=== PATIENT | female | born 1955 | race Asian ===

== ENCOUNTER 2016-04-09 13:09 | Observation (INO) | payer BC ==
[~2016-04-09] VITALS: Ht 160 cm; Wt 63.5 kg
[2016-04-09] MEDS ORDERED: OPTIRAY 350 100 ML VIAL HMH IV ONE (13:10)
[2016-04-09 13:49] VITALS: BP_SYST 160; RESP 16; TEMP 97.7
[2016-04-09 13:55] VITALS: Ht 160 cm; Wt 63.5 kg
[2016-04-09] MEDS ORDERED: PROMETHAZINE 25 MG/ML VIAL IV PRN (14:15)
[2016-04-09] MEDS ORDERED: DILAUDID 1 MG/ML AMP IV PRN (14:15)
[2016-04-09] MEDS: SODIUM CHLOR 0.9% W/KCL 20MEQ 1,000 ML IV SCH ×2 (14:29→20:18)
[2016-04-09 15:07] VITALS: BP_SYST 112; RESP 16; TEMP 98
[2016-04-09 19:10] VITALS: BP_SYST 96; RESP 14; TEMP 98.4
[2016-04-09 23:00] VITALS: BP_SYST 99; RESP 14; TEMP 98.1
[2016-04-10] MEDS: SODIUM CHLOR 0.9% W/KCL 20MEQ 1,000 ML IV SCH ×2 (02:26→08:37)
[2016-04-10 04:00] VITALS: BP_SYST 96; RESP 14; TEMP 98.2
[2016-04-10 07:20] VITALS: BP_SYST 114; RESP 16; TEMP 97.6
[2016-04-10 11:10] VITALS: BP_SYST 146; RESP 16; TEMP 97.6
[2016-04-10 15:14] VITALS: BP_SYST 134; RESP 16; TEMP 98.9
[2016-04-10 15:58] VITALS: BP_SYST 134; RESP 16; TEMP 98.9
== END 2016-04-10 10:17 | disposition home or self-care (01) ==
LOC: 5THW 13:09 → ENPENDDIS 13:09
PROVIDERS: ADMIT Internal Medicine; ATTEND Internal Medicine
DX: N13.2 Hydronephrosis with renal and ureteral calculous obstruction (principal); J30.9 Allergic rhinitis, unspecified
CPT/HCPCS: 71260; 74000; 74176; 80053; 81001; 84550; 85025; 87077; 87088; 87186